=== PATIENT | female | born 1945 | race Caucasian/White ===

== ENCOUNTER → 2024-07-07 | Outpatient (CLI) | payer MEDICARE, SELFPAY ==
[2024-07-07 08:26] LABS: Basophils # (Auto) 0.1 Thou/mm3 (0.0-0.2); Basophils % (Auto) 1 % (0-2.5); Eosinophils # (Auto) 0.2 Thou/mm3 (0.0-0.5); Eosinophils % (Auto) 2 % (0-10); Hematocrit 38.3 % (36.0-46.0); Immature Granulocytes % (Auto) 0 % (0-0); Immature Granulocytes Auto 0.01 Thou/mm3 (0.00-0.00); Lymphocytes # (Auto) 2.3 Thou/mm3 (1.0-4.8); Lymphocytes % (Auto) 29 % (10-50); Mean Corpuscular HGB Conc 33.9 g/dl (31.0-37.0); Mean Corpuscular Hemoglobin 32.2 pg (25.0-35.0); Mean Corpuscular Volume 95 fL (80-100); Monocytes # (Auto) 0.7 Thou/mm3 (0.0-0.8); Monocytes % (Auto) 9 % (0-12); Neutrophils # (Auto) 4.8 Thou/mm3 (1.8-7.7); Neutrophils % (Auto) 59 % (37-80); Nucleated Red Blood Cell % 0 /100 WBC (0); Platelet Count 304 Thou/mm3 (140-440); RDW Standard Deviation 45.2 fL (36.4-46.3); Red Blood Count 4.04 Miln/mm3 (4.00-5.20); White Blood Count 8.1 Thou/mm3 (3.6-11.0)
[2024-07-07 08:48] LABS: Albumin, Serum 4.8 gm/dL (3.4-4.8); Anion Gap 7 (7-16); BUN/Creatinine Ratio 27 Ratio (12-20); Blood Urea Nitrogen 27 mg/dL (9-23); Calcium 10.1 mg/dL (8.3-10.6); Calcium (Corrected) 10.1 mg/dL (8.5-10.1); Carbon Dioxide 28.1 mMol/L (20.0-31.0); Chloride 105 mMol/L (98-107); Glucose 91 mg/dL (74-106); Osmolality,Calculated 284 (275-295); Phosphorous 3.7 mg/dL (2.4-5.1); Potassium 4.2 mMol/L (3.4-5.1); Sodium 140 mMol/L (136-145); eGFR 58 See Note
[2024-07-07 09:00] LABS: Total Iron Binding Capacity 291 mcg/dL (250-425)
[2024-07-07 22:13] LABS: Iron 130 mcg/dL (50-170); Percent Iron Saturation 44 % (20-55); Unsaturated Iron Binding 161 (225-295)
== END | disposition home or self-care (01) ==
LOC: COPL 07:01
PROVIDERS: PCP Family Medicine; Referring Provider Internal Medicine; Visit Provider Internal Medicine
DX: E55.9 Vitamin D deficiency, unspecified (principal); I10 Essential (primary) hypertension; D64.9 Anemia, unspecified
CPT/HCPCS: 36415; 80069; 83540; 83550; 85025

== ENCOUNTER → 2024-09-11 | Outpatient (CLI) | payer MEDICARE, SELFPAY ==
[2024-09-11 17:59] LABS: Amphetamine/Methamp Scrn,U Negative (Negative); Barbiturate Screen,Urine Negative (Negative); Benzodiazepines Screen,Urine Negative (Negative); Benzoylecgonine Screen, Ur Negative (Negative); Fentanyl Screen,Urine Negative (Negative); Opiate Screen,Urine Positive (Negative); THC Screen,Urine Negative (Negative)
== END | disposition home or self-care (01) ==
LOC: SLDO 15:45
PROVIDERS: PCP Registered Nurse; Referring Provider Registered Nurse; Visit Provider Registered Nurse
DX: Z79.891 Long term (current) use of opiate analgesic (principal)
CPT/HCPCS: 80307

== ENCOUNTER → 2024-10-05 | Outpatient (CLI) | payer MEDICARE, SELFPAY ==
[2024-10-05 08:46] LABS: Albumin, Serum 4.4 gm/dL (3.4-4.8); Anion Gap 5 (7-16); BUN/Creatinine Ratio 21 Ratio (12-20); Blood Urea Nitrogen 21 mg/dL (9-23); Calcium 9.8 mg/dL (8.3-10.6); Calcium (Corrected) 9.8 mg/dL (8.5-10.1); Carbon Dioxide 29.5 mMol/L (20.0-31.0); Chloride 108 mMol/L (98-107); Glucose 97 mg/dL (74-106); Osmolality,Calculated 286 (275-295); Phosphorous 3.3 mg/dL (2.4-5.1); Potassium 4.1 mMol/L (3.4-5.1); Sodium 142 mMol/L (136-145); eGFR 58 See Note
== END | disposition home or self-care (01) ==
LOC: COPL 06:49
PROVIDERS: PCP Family Medicine; Referring Provider Internal Medicine; Visit Provider Internal Medicine
DX: D64.9 Anemia, unspecified (principal); I10 Essential (primary) hypertension; E55.9 Vitamin D deficiency, unspecified
CPT/HCPCS: 36415; 80069

== ENCOUNTER → 2024-10-27 | Outpatient (CLI) | payer MEDICARE, SELFPAY ==
--- NOTE | 2024-10-27 11:00 | XR_ITS ---
Examination: Screening digital mammography, bilateral Computer aided detection 3-D breast Tomosynthesis, bilateral Date and time of exam: October 27, 2024 1045 hours Compared to mammograms dating to 03/27/2015 Indication: Screening Technique: Nonmagnified MLO, CC views of the breasts to been obtained, reconstructed from 3-D Tomosynthesis images. R2 computer aided detection program utilized for evaluation of suspicious masses and/or abnormal calcifications. 3-D Tomosynthesis images obtained. Findings: Scattered areas of fibroglandular density. Benign calcifications. No interval suspicious masses Impression: BI-RADS category II: Benign Findings. Recommend 1 year follow-up mammogram.
== END | disposition home or self-care (01) ==
PROVIDERS: Referring Provider Family Medicine; Visit Provider Family Medicine
DX: Z12.31 Encounter for screening mammogram for malignant neoplasm of breast (principal); R92.323 Mammographic fibroglandular density, bilateral breasts; R92.1 Mammographic calcification found on diagnostic imaging of breast
CPT/HCPCS: 77063; 77067

== ENCOUNTER → 2024-11-15 | Outpatient (CLI) | payer MEDICARE, SELFPAY ==
[2024-11-15 14:59] LABS: Collection Type, Urine Clean Catch
[2024-11-15 16:54] LABS: Bilirubin,Urine Negative (Negative); Blood,Urine Trace (Negative); Clarity,Urine Clear (Clear/Hazy); Color,Urine Lt-Yellow (Lt Yel-Yel); Glucose, Urine Negative (Negative); Ketones,Urine Negative (Negative); Leukocyte Esterase,Urine Negative (Negative); Nitrite,Urine Negative (Negative); PH,Urine 6.5 (5.0-7.0); Protein,Urine Negative (Neg - Trace); RBC,Urine < 1 /hpf (0-3); Specific Gravity,Urine 1.016 (1.001-1.035); Squamous Epithelial Cell,Urine 1 /hpf (0-5); Urobilinogen,Urine Negative mg/dL (0.0-1.0); WBC,Urine 2 /hpf (0-5)
== END | disposition home or self-care (01) ==
LOC: SLDO 14:27
PROVIDERS: PCP Family Medicine; Referring Provider Family Medicine; Visit Provider Family Medicine
DX: N39.0 Urinary tract infection, site not specified (principal)
CPT/HCPCS: 81001; 87086

== ENCOUNTER → 2024-12-14 | Outpatient (CLI) | payer MEDICARE, SELFPAY ==
[2024-12-14 15:06] LABS: Collection Type, Urine Clean Catch
[2024-12-14 15:47] LABS: Bilirubin,Urine Negative (Negative); Blood,Urine Negative (Negative); Clarity,Urine Clear (Clear/Hazy); Color,Urine Lt-Yellow (Lt Yel-Yel); Glucose, Urine Negative (Negative); Ketones,Urine Negative (Negative); Leukocyte Esterase,Urine Negative (Negative); Nitrite,Urine Negative (Negative); Protein,Urine Negative (Neg - Trace); RBC,Urine 2 /hpf (0-3); Specific Gravity,Urine 1.012 (1.001-1.035); Squamous Epithelial Cell,Urine 1 /hpf (0-5); Urobilinogen,Urine Negative mg/dL (0.0-1.0); WBC,Urine 4 /hpf (0-5)
== END | disposition home or self-care (01) ==
LOC: SLDO 15:01
PROVIDERS: PCP Registered Nurse; Referring Provider Registered Nurse; Visit Provider Registered Nurse
DX: Z79.891 Long term (current) use of opiate analgesic (principal)
CPT/HCPCS: 81001; 87077; 87086; 87186

== ENCOUNTER 2024-12-23 10:09 | Emergency (ER) | payer MEDICARE, SELFPAY ==
[2024-12-23 10:10] VITALS: BMI 17.4
--- NOTE | 2024-12-23 10:14 | EKG_ITS ---
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
[2024-12-23 10:42] VITALS: BP 113/65; PULSE 70; RESP 20; TEMP 36.6; O2SAT 97; BMI 17.3
--- NOTE | 2024-12-23 10:52 | XR_ITS ---
Examination: PA lateral chest 2 views Technique: Upright PA lateral chest 2 views Date and time: December 23, 2024, 1102 hrs. Comparison June 16, 2021 Indications: Chest pain weakness beginning 4 days ago. Findings: Significant hyperexpansion Mild pneumonia in the lingular segment No pulmonary edema Prominent osteopenia Impression: COPD. Pneumonia lingular segment left upper lobe
--- NOTE | 2024-12-23 10:53 | PD.EDRME ---
Rapid Medical Screening Exam E Arrival date/time: 12/23/24 10:09 This is a 79-year-old female who comes into the emergency room with complaints of nausea and weakness for the past couple weeks. Patient also states she has shortness of breath. Patient denies chest pain. Patient reports that she was recently treated for UTI. Patient was initially put on Augmentin approximately 2 weeks ago. Patient antibiotic was changed but does not remember the name of it. And last week was put on Bactrim for her urinary tract infection. Patient states she has not been able to take her antibiotic in the last 2 days. Patient reports feeling very weak and short of breath. Patient reports history of what appears to be skin cancer. Patient states she has a lesion on her nose and the back of her head and on her leg. Patient states she recently had radiation to her right leg. I have greeted and performed a focused initial assessment of this patient. Initial appropriate labs ordered at this time. A comprehensive ED assessment and evaluation of the patient and analysis of all test and completion of medical decision making process will be conducted by additional ED provider. Chief Complaint: Nausea/Vomiting/Diarrhea Time Seen by Provider: 12/23/24 10:12 Vital signs: Vital Signs Temperature 97.8 F 12/23/24 10:42 Pulse Rate 70 12/23/24 10:42 Respiratory Rate 20 12/23/24 10:42 Blood Pressure 113/65 12/23/24 10:42 Pulse Oximetry (%) 97 12/23/24 10:42 Oxygen Delivery Method Room Air 12/23/24 10:42
[2024-12-23 11:16] LABS: Basophils # (Auto) 0.1 Thou/mm3 (0.0-0.2); Basophils % (Auto) 1 % (0-2.5); Eosinophils # (Auto) 0.2 Thou/mm3 (0.0-0.5); Eosinophils % (Auto) 3 % (0-10); Hemoglobin 12.4 g/dL (12.0-16.0); Immature Granulocytes % (Auto) 0 % (0-0); Immature Granulocytes Auto 0.02 Thou/mm3 (0.00-0.00); Lymphocytes # (Auto) 0.8 Thou/mm3 (1.0-4.8); Lymphocytes % (Auto) 11 % (10-50); Mean Corpuscular HGB Conc 35.4 g/dl (31.0-37.0); Mean Corpuscular Hemoglobin 32.5 pg (25.0-35.0); Mean Corpuscular Volume 92 fL (80-100); Monocytes # (Auto) 0.9 Thou/mm3 (0.0-0.8); Monocytes % (Auto) 12 % (0-12); Neutrophils # (Auto) 5.2 Thou/mm3 (1.8-7.7); Neutrophils % (Auto) 73 % (37-80); Nucleated Red Blood Cell % 0 /100 WBC (0); Platelet Count 230 Thou/mm3 (140-440); RDW Standard Deviation 44.5 fL (36.4-46.3); Red Blood Count 3.81 Miln/mm3 (4.00-5.20); White Blood Count 7.1 Thou/mm3 (3.6-11.0)
[2024-12-23 11:28] LABS: B-Type Natriuretic Peptide 27 pg/mL (0-100)
[2024-12-23 11:34] LABS: Alanine Aminotransferase 648 U/L (10-49); Albumin, Serum 4.5 gm/dL (3.4-4.8); Albumin/Globulin Ratio 1.7 (1.2-2.2); Alkaline Phosphatase 374 U/L (46-116); Anion Gap 6 (7-16); Aspartate Amino Transferase 604 U/L (0-34); BUN/Creatinine Ratio 11 Ratio (12-20); Bilirubin,Total 1.4 mg/dL (0.3-1.2); Blood Urea Nitrogen 16 mg/dL (9-23); Calcium 9.6 mg/dL (8.3-10.6); Calcium (Corrected) 9.6 mg/dL (8.5-10.1); Carbon Dioxide 26.1 mMol/L (20.0-31.0); Chloride 103 mMol/L (98-107); Creatinine (Component) 1.4 mg/dL (0.6-1.3); Estimated Creatinine Clearance 26.6 mL/min (>60); Globulin 2.7 gm/dL (2.3-3.5); Glucose 112 mg/dL (74-106); Osmolality,Calculated 272 (275-295); Potassium 3.9 mMol/L (3.4-5.1); Sodium 135 mMol/L (136-145); Total Protein 7.2 gm/dL (5.7-8.2); Troponin I < 0.020 ng/mL (0.0-0.045); eGFR 39 See Note
[2024-12-23 13:02] LABS: Collection Type, Urine Voided
[2024-12-23 13:17] LABS: Bacteria,Urine Rare; Bilirubin,Urine Negative (Negative); Blood,Urine Negative (Negative); Clarity,Urine Turbid (Clear/Hazy); Color,Urine Yellow (Lt Yel-Yel); Culture Indicated,Urine Not Indicated; Glucose, Urine Negative (Negative); Ketones,Urine Negative (Negative); Leukocyte Esterase,Urine Negative (Negative); Nitrite,Urine Negative (Negative); PH,Urine 6.5 (5.0-7.0); Protein,Urine Trace (Neg - Trace); RBC,Urine 5 /hpf (0-3); Specific Gravity,Urine 1.012 (1.001-1.035); Squamous Epithelial Cell,Urine 10 /hpf (0-5); Transitional Epi Cells,Urine 1 /hpf (0-5); Urobilinogen,Urine Negative mg/dL (0.0-1.0); WBC,Urine 3 /hpf (0-5)
--- NOTE | 2024-12-23 16:27 | XR_ITS ---
Examination: Abdomen sonogram, Limited Date and time of exam: December 23, 2024, 1652 hours INDICATIONS: Elevated liver enzymes on laboratory examination today Technique: Real-time garzon scale transabdominal sonographic images of the upper abdomen obtained. Findings: Multiple gallstones. Normal gallbladder wall. Common bile duct 0.7 cm no definite stones. Pancreatic head 1.6 cm. Liver 15.6 cm smooth contour Normal hepatopedal portal venous and Patent IVC IMPRESSION: Cholelithiasis, negative for cholecystitis Common bile duct 0.7 cm no definite stones
--- NOTE | 2024-12-23 17:12 | PD.EDWEAK ---
ED Weakness RME/HPI General Chief complaint: Nausea/Vomiting/Diarrhea Stated complaint: BODY ACHES/NAUSEA/DRY HEAVES x 5 DAYS Time Seen by Provider: 12/23/24 10:12 Arrival date/time: 12/23/24 10:09 Limitations: no limitations RME / HPI RME / HPI Narrative: 12/23/24 10:09 This is a 79-year-old female who comes into the emergency room with complaints of nausea and weakness for the past couple weeks. Patient also states she has shortness of breath. Patient denies chest pain. Patient reports that she was recently treated for UTI. Patient was initially put on Augmentin approximately 2 weeks ago. Patient antibiotic was changed but does not remember the name of it. And last week was put on Bactrim for her urinary tract infection. Patient states she has not been able to take her antibiotic in the last 2 days. Patient reports feeling very weak and short of breath. Patient reports history of what appears to be skin cancer. Patient states she has a lesion on her nose and the back of her head and on her leg. Patient states she recently had radiation to her right leg. I have greeted and performed a focused initial assessment of this patient. Initial appropriate labs ordered at this time. A comprehensive ED assessment and evaluation of the patient and analysis of all test and completion of medical decision making process will be conducted by additional ED provider. DR. HARRISON MAIN ED EVALUATION: 79 year old female with history of COPD, hypertension, hyperlipidemia, rectal prolapse status post sigmoidectomy with colorectal anastomosis and rectopexy with mesh in 2018, esophageal stricture, and fibromyalgia presents to the ED for evaluation of global weakness and feeling fatigued beginning 2 days ago. Accompanied by decreased appetite, nausea, and dry heaving. Patient mentioned she was diagnosed with a UTI ~ 1 month ago and treated with three different antibiotics and unsure if that is contributing to her symptoms today. Patient additionally reports chronic pain in her back. However, beginning 3 days ago has had a new and different pain to her back. Denies fevers, chills, chest pain, cough, vomiting, diarrhea, constipation, or dysuria. Related Data Home Medications ?Medication ?Instructions ?Recorded ?Confirmed simvastatin 40 mg tablet (Zocor) 40 mg PO HS #0 tabs 10/02/13 11/10/22 ergocalciferol (vitamin D2) 1,250 50,000 unit PO QWEEK 06/10/20 11/10/22 mcg (50,000 unit) capsule (Vitamin D2) hydrocodone 7.5 mg-acetaminophen 4 tab PO QID PRN Pain 03/27/21 11/10/22 325 mg tablet Held on 11/10/22. Instructions: Resume on 11/11/22. promethazine 6.25 mg-codeine 10 10 ml PO QID PRN Cough 03/27/21 06/16/21 mg/5 mL syrup Held on 11/10/22. Instructions: Resume on 11/11/22. azithromycin 250 mg tablet 250 mg PO QDAY 06/16/21 11/10/22 lisinopril 30 mg tablet 30 mg PO QDAY 09/29/22 11/10/22 loratadine 10 mg capsule 10 mg PO QDAY 09/29/22 11/10/22 meloxicam 7.5 mg tablet 7.5 mg PO QDAY 09/29/22 11/10/22 ondansetron 8 mg disintegrating 8 mg PO Q8H 09/29/22 11/10/22 tablet trazodone 50 mg tablet 50 mg PO QDAY 09/29/22 11/10/22 Held on 11/10/22. Instructions: Resume on 11/11/22. vitamin B comp no.3-folic acid 1 1 tab PO QDAY 09/29/22 11/10/22 mg-vit C 60 mg-biotin 300 mcg tablet (Kindra-Jose Rx) Allergies Allergy/AdvReac Type Severity Reaction Status Date / Time No Known Allergies Allergy Verified 12/23/24 10:13 Review of Systems Review of Systems Systems Reviewed: All systems reviewed, normal except as documented Past Medical History Past Medical History CARDIAC: Positive Cardiac Disorders, Hypercholesterolemia and Hypertension RESPIRATORY: Positive Chronic Obstructive Pulmonary Disease (COPD) GASTROINTESTINAL: Positive Gastrointestinal Disorders, Obstructive Bowel and Gastroesophageal Reflux Disease GENITOURINARY: Positive Genitourinary Disorders REPRODUCTIVE: Positive Previous Pregnancies MUSCULOSKELETAL: Positive Musculoskeletal Disorders, Arthritis and Fibromyalgia ENT: Positive Cataracts ENDOCRINE: Positive Hypoglycemia PSYCHO/SOCIAL: Positive Depression and Anxiety OTHER HISTORY: Positive Hospitalization, Chicken Pox, Measles and Mumps Family History FAMILY HISTORY: Positive Family Cancer (father and mother bone cancer) Surgical History SURGICAL: Positive Tonsillectomy, Abdominal Surgery and Bowel Surgery (BOWEL RESECTION) Social History SMOKING STATUS: Current some day smoker SECOND HAND EXPOSURE: No SUBSTANCE USE: does not use ED Exam General Limitations: Present no limitations General appearance: Present alert and other (thin appearing, emaciated ) Head Head exam: Present atraumatic Eye Eye exam: Present normal appearance, PERRL and EOMI ENT ENT exam: Present normal exam, normal oropharynx and mucous membranes moist Neck Neck exam: Present normal inspection, full ROM and trachea midline Chest Chest inspection: Present normal inspection and symmetric chest wall rise Respiratory Respiratory exam: Present normal lung sounds bilaterally Cardiovascular Cardiovascular exam: Present regular rate, normal rhythm and normal heart sounds Abdominal Exam Abdominal exam: Present soft and normal bowel sounds; Absent guarding, rebound or rigidity Extremities Exam Extremities exam: Present normal inspection and full ROM Back Exam Back exam: Present normal inspection and full ROM Neurological Exam Neurological exam: Present alert, oriented X3 and CN II-XII intact Psychiatric Psychiatric exam: Present normal affect and normal mood Skin Skin exam: Present warm, dry, intact and normal color Course Quality Measures none Orders Category Date Time Status CT Screening NOW Care 12/23/24 16:27 Completed EKG (ED ONLY) *Do not use* NOW Care 12/23/24 10:14 Completed MRI Screening NOW Care 12/23/24 19:[address] abdomen pelvis wo con Stat Exams 12/23/24 17:28 Completed EKG (ED Only) Stat Exams 12/23/24 10:14 Draft MR MRCP Stat Exams 12/23/24 Ordered US abdomen limited Stat Exams 12/23/24 16:27 Completed XR chest 2V Stat Exams 12/23/24 10:52 Completed Acetaminophen Stat Lab 12/23/24 20:01 Completed BNP [B-Type Natriuretic Peptide] Stat Lab 12/23/24 11:02 Completed CBC Stat Lab 12/23/24 11:02 Completed Comprehensive Metabolic Panel Stat Lab 12/23/24 11:02 Completed Hepatitis Acute Panel Stat Lab 12/23/24 20:01 Received Troponin I Stat Lab 12/23/24 11:02 Completed Urinalysis, C/S if Indicated Stat Lab 12/23/24 12:54 Completed Urine Culture Stat Lab 12/23/24 12:54 Received HYDROcodone/APAP 10/325 [Irwin 10/325] Med 12/23/24 19:24 Discontinued 1 tab PO X1 ONE HYDROcodone/APAP 10/325 [Irwin 10/325] Med 12/24/24 04:08 Discontinued 1 tab PO X1 ONE Ondansetron Inj [Zofran Inj] Med 12/24/24 00:13 Discontinued 4 mg IVP X1 ONE Piper/Tazo 3.375 gm Premix [Zosyn] Med 12/23/24 22:23 Discontinued 3.375 gm in 50 ml IV X1 Ringers Lactated 1000 ml [Lactated Ringers] 1,000 ml Med 12/23/24 17:29 Discontinued IV 125 mls/hr Ringers Lactated 500 ml [Lactated Ringers] 500 ml Med 12/23/24 17:29 Discontinued IV 500 mls/hr Vital Signs Vital signs: Vital Signs Temperature 97.8 F 12/23/24 10:42 Pulse Rate 70 12/23/24 10:42 Respiratory Rate 20 12/23/24 10:42 Blood Pressure 113/65 12/23/24 10:42 Pulse Oximetry (%) 97 12/23/24 10:42 Oxygen Delivery Method Room Air 12/23/24 10:42 Pulse ox is 97% on room air which is adequate. Weakness MDM Narrative MDM Narrative:: Janay Martins am scribing for and in the presence of Dr. Harrison. Assessment: Possible pneumonia, has a history of COPD, now with the addition of abdominal discomfort. Given the new symptoms, the differential includes CBD stone versus a tumor. Plan: CT abdomen, ultrasound of the abdomen, antibiotics, and supportive care for COPD exacerbation and pneumonia. 1800; Patient signed out to Dr. Rascon pending CT report and final disposition. Patient data External records reviewed:: [facility] previous records (I reviewed H&P on 11/10/2022 ) Clinical information provided by:: patient Social determinants that could affect healthcare access:: none Patient has the following chronic illnesses:: COPD, hypertension, hyperlipidemia, rectal prolapse status post sigmoidectomy with colorectal anastomosis and rectopexy with mesh in 2018, esophageal stricture, and fibromyalgia How is presenting disease/condition affected by chronic disease/condition?: exacerbated by Evaluation data The following diagnostics were reviewed and interpreted by me:: lab results, radiology exam(s) and EKG tracing(s) Lab and/or radiology exams considered but not ordered:: None Interpretation Summary: Ordering Physician: Zabrina Aguilar NP Date of Service: 12/23/24 Procedure(s): XR chest 2V Accession Number(s): [id number] cc: Samm Grant MD; Zabrina Aguilar RN OUTPATIENT SURGERY; Ralf Dolan MD~ Examination: PA lateral chest 2 views Technique: Upright PA lateral chest 2 views Date and time: December 23, 2024, 1102 hrs. Comparison June 16, 2021 Indications: Chest pain weakness beginning 4 days ago. Findings: Significant hyperexpansion Mild pneumonia in the lingular segment No pulmonary edema Prominent osteopenia Impression: COPD. Pneumonia lingular segment left upper lobe Dictated By: Samm Grant MD Signed By: <Electronically signed by Samm Grant MD in OV> 12/23/24 1138 Medications / Prescriptions Medications or Prescriptions considered but not ordered:: None Medication administrations:: Medication Administration History Discontinued Medications Hydrocodone Bitart/Acetaminophen (Hydrocodone/Apap 10/325 Tab) 1 tab PO X1 ONE Stop: 12/23/24 19:25 Last Admin: 12/23/24 19:43 Dose: 1 tab Documented By: CHARISSE Hydrocodone Bitart/Acetaminophen (Hydrocodone/Apap 10/325 Tab) 1 tab PO X1 ONE Stop: 12/24/24 04:09 Last Admin: 12/24/24 04:15 Dose: 1 tab Documented By: CHARISSE Lactated Ringer's (Lactated Ringers) 1,000 mls @ 125 mls/hr IV .Q8H ONE Stop: 12/24/24 01:28 Last Infusion: 12/24/24 03:09 Dose: Infused Documented By: Admin: 12/23/24 17:39 Dose: 125 mls/hr Documented By: Lactated Ringer's (Lactated Ringers) 500 mls @ 500 mls/hr IV .Q1H ONE Stop: 12/23/24 18:28 Last Infusion: 12/23/24 18:50 Dose: Infused Documented By: Admin: 12/23/24 17:40 Dose: 500 mls/hr Documented By: Piperacillin/Tazobactam/Dextrose (Zosyn) 3.375 gm in 50 mls @ 100 mls/hr IV X1 ONE Stop: 12/23/24 22:52 Last Infusion: 12/23/24 23:38 Dose: Infused Documented By: Admin: 12/23/24 22:29 Dose: 100 mls/hr Documented By: CHARISSE Ondansetron HCl (Ondansetron Inj 2 Mg/Ml Inj 2 Ml) 4 mg IVP X1 ONE Stop: 12/24/24 00:14 Last Admin: 12/24/24 00:24 Dose: 4 mg Documented By: CHARISSE See above Consultations Consultation(s) initiated? (list below): No Diagnosis Weakness Differential Diagnosis: hypothyroidism, sepsis and dehydration Most likely diagnosis given after review of the tests above:: Abdominal pain Admission Indicated Admission indicated?: not indicated Explain why admission is indicated or not indicated:: Signed out to Dr. Rascon Admission Request Was there a request for admission?: No Disposition Plan Disposition Plan: other (specify) (Signed out pending final disposition ) Critical Care Time Critical Care Time Critical Care Time: Yes Total Critical Care Time (min.): 40 Attestation: common bile ducu stone Discharge Plan Plan Patient Disposition: [facility] Facility Pt Being Transferred to: [facility] Service Needed for Transfer: Gastroenterology Patient condition on transfer: Stable Prescriptions/Referrals Prescriptions/Med Rec: No Action meloxicam 7.5 mg tablet 7.5 mg PO QDAY Kindra-Jose Rx 1-60-300 mg-mg-mcg tablet 1 tab PO QDAY loratadine 10 mg capsule 10 mg PO QDAY trazodone 50 mg tablet 50 mg PO QDAY lisinopril 30 mg tablet 30 mg PO QDAY ondansetron 8 mg tablet,disintegrating 8 mg PO Q8H simvastatin [Zocor] 40 MG tablet 40 mg PO HS Qty: 0 ergocalciferol (vitamin D2) [Vitamin D2] 1,250 mcg (50,000 unit) capsule 50,000 unit PO QWEEK Patient Comments: TAKE ONE CAPSULE BY MOUTH EVERY WEEK VITAMIN promethazine-codeine 6.25-10 mg/5 mL syrup 10 ml PO QID PRN (Reason: Cough) Patient Comments: TAKE 10ML BY MOUTH EVERY 4 HOURS NEEDED FOR COUGH hydrocodone-acetaminophen 7.5-325 mg tablet 4 tab PO QID PRN (Reason: Pain) Patient Comments: TAKE ONE TABLET BY MOUTH FOUR TIMES DAILY NEEDED FOR PAIN azithromycin 250 mg tablet 250 mg PO QDAY Referrals: Ralf Dolan MD [Primary Care Provider] - In 1 week Problem List Clinical Impression: Biliary calculi, common bile duct Patient/Caregiver Discharge Instructions Print Language: Zimbabwean Stand Alone Forms: Disha Award Info., Patient Portal Info Letter
[2024-12-23 17:22] VITALS: BP 138/61; PULSE 60; RESP 19; TEMP 36.6; O2SAT 94; BMI 17.2
--- NOTE | 2024-12-23 17:28 | XR_ITS ---
Examination: CT abdomen and pelvis without contrast. Coronal 3-D reconstructions. Sagittal 2-D reconstructions. Date and time of exam:December 23, 2024, 1749 hours Comparison July 16, 2023 INDICATIONS: Abdominal pain and elevated liver enzymes on laboratory examination today CTDI: vol (mGy): 5.09 DLP: (mGycm): 222 Technique: Axial images of the abdomen have been obtained, 3 mm slice thickness Intravenous contrast material has not been administered. Low dose protocols were performed. One or more of the following dose reduction techniques were used; automated exposure control, adjustment of the mA and/or KV according to patient size, use of iterative reconstruction technique. Findings: Left lobe 4 cm liver cyst Hepatomegaly 17 cm No intrahepatic biliary tract dilatation Gallstones Gallbladder wall does not appear thickened Common bile duct 7 mm no definite stones No pancreatic mass No renal or ureteral calculi, no hydronephrosis Normal appendix No bowel obstruction No diverticulitis Urinary bladder intact IMPRESSION: Hepatomegaly, 17 cm Cholelithiasis, negative for cholecystitis Common bile duct 7 mm, no definite stones, if biliary colic is a clinical consideration, suggest MRCP follow-up
[2024-12-23] MEDS: RINGERS LACTATED 1000 ML 1,000 ML 125 ML IV (17:39)
[2024-12-23] MEDS: RINGERS LACTATED 500 ML 500 ML IV (17:40)
[2024-12-23 18:01] VITALS: BP 141/73; PULSE 63; RESP 12; TEMP 36.6; O2SAT 96
--- NOTE | 2024-12-23 18:19 | PD.EDADDENDU ---
Emergency Room Addendum Addendum Narrative: 1800: Care assumed from Dr. Michele (emergency physician). Past medical, surgical, social and family history reviewed. Vitals and home medications reviewed. Results and treatment plan discussed. They will assume the care of the patient at this time and will follow the patient, pending US and CT. The following addendum documentation note is intended to reflect any pending information, findings, or radiology results not included in the patient?s initial chart by the previous shift scribe. RADIOLOGY Abdomen/Pelvis CT: Patient: OLIVIA GREENBERG. Record#: [id number] Birthdate: 1945 Age/Sex: 79 / F Location: [facility], [place] Attending Dr: Ordering Physician: Maria Antonia Kendall MD Date of Service: 12/23/24 Procedure(s): CT abdomen pelvis wo con Accession Number(s): [id number] cc: Maria Antonia Kendall MD; Samm Grant MD; Ralf Dolan MD~ Examination: CT abdomen and pelvis without contrast. Coronal 3-D reconstructions. Sagittal 2-D reconstructions. Date and time of exam:December 23, 2024, 1749 hours Comparison July 16, 2023 INDICATIONS: Abdominal pain and elevated liver enzymes on laboratory examination today CTDI: vol (mGy): 5.09 DLP: (mGycm): 222 Technique: Axial images of the abdomen have been obtained, 3 mm slice thickness Intravenous contrast material has not been administered. Low dose protocols were performed. One or more of the following dose reduction techniques were used; automated exposure control, adjustment of the mA and/or KV according to patient size, use of iterative reconstruction technique. Findings: Left lobe 4 cm liver cyst Hepatomegaly 17 cm No intrahepatic biliary tract dilatation Gallstones Gallbladder wall does not appear thickened Common bile duct 7 mm no definite stones No pancreatic mass No renal or ureteral calculi, no hydronephrosis Normal appendix No bowel obstruction No diverticulitis Urinary bladder intact IMPRESSION: Hepatomegaly, 17 cm Cholelithiasis, negative for cholecystitis Common bile duct 7 mm, no definite stones, if biliary colic is a clinical consideration, suggest MRCP follow-up Dictated By: Samm Grant MD Signed By: <Electronically signed by Samm Grant MD in OV> 12/23/241809 Abdomen US: Patient: OLIVIA GREENBERG. Record#: [id number] Birthdate: 1945 Age/Sex: 79 / F Location: [facility], [place] Attending Dr: Ordering Physician: Maria Antonia Kendall MD Date of Service: 12/23/24 Procedure(s): US abdomen limited Accession Number(s): [id number] cc: Maria Antonia Kendall MD; Samm Grant MD; Ralf Dolan MD~ Examination: Abdomen sonogram, Limited Date and time of exam: December 23, 2024, 1652 hours INDICATIONS: Elevated liver enzymes on laboratory examination today Technique: Real-time garzon scale transabdominal sonographic images of the upper abdomen obtained. Findings: Multiple gallstones. Normal gallbladder wall. Common bile duct 0.7 cm no definite stones. Pancreatic head 1.6 cm. Liver 15.6 cm smooth contour Normal hepatopedal portal venous and Patent IVC IMPRESSION: Cholelithiasis, negative for cholecystitis Common bile duct 0.7 cm no definite stones Dictated By: Samm Grant MD Signed By: <Electronically signed by Samm Grant MD in OV> 12/23/241815 2039: Discussed with Dr. Correa for consult. Reviewed the patient?s HPI, PMHx, lab and/or radiology results. Treatment plan was discussed. 2047: I agree with previous provider's physical exam. Discussed the need for MRCP and the possibility of being transferred to another facility. Worst case, patient may need to wait and have MRCP performed here on Wednesday as we do not have the capability to do so on Sundays. Patient is still experiencing intermittent nausea and now back pain due to being on the gurney for a long period of time. She reports normally being very active and not being in bed for long periods of time. Will attempt transfer. 2307: Discussed with [facility] for transfer. Reviewed the patient?s HPI, PMHx, lab and/or radiology results. Discussed treatment plan and need for MRCP. Will consult transfer. 2320: Patient accepted to [facility] for transfer and MRCP. 0440: Patient transported by EMS to [facility] for MRCP.
--- NOTE | 2024-12-23 19:25 | PC.NURSE ---
NOTIFIED OF PATIENT'S REQUEST FOR HOME DOSE OF NORCO 10/325MG TAB FOR C/O 8/10 PAIN TO BACK, RECEIVED VERBAL ORDER FOR NORCO 10/325MG TBA ONE TAB NOW.
[2024-12-23] MEDS: HYDROcodone/APAP 10/325 TAB PO (19:43)
[2024-12-23 20:46] VITALS: BP 125/59; PULSE 70; RESP 17; O2SAT 97
[2024-12-23 20:53] LABS: Acetaminophen < 2.0 mcg/mL (10.0-20.0)
[2024-12-23] MEDS: PIPER/TAZO 3.375 GM PREMIX 3.375 GM/50 ML BAG IV (22:29)
--- NOTE | 2024-12-23 22:30 | PC.NURSE ---
[facility] contacted for GI transfer. Pt is needing an MRCP, we currently don't have MRI available until Wednesday. Ada at transfer center was notified packet was sent. they are to reach back after consulting with GI
--- NOTE | 2024-12-23 23:22 | PC.NURSE ---
2318, accepted to [facility], ed to ed, , report #[id number], spoke to hilary
[2024-12-24 00:10] VITALS: BP 128/60; PULSE 60; PULSE 62; RESP 18; TEMP 36.5
[2024-12-24] MEDS: ONDANSETRON INJ 2 MG/ML INJ 2 ML 4 MG IVP (00:24)
--- NOTE | 2024-12-24 02:08 | PC.NURSE ---
2318, accepted to [facility], ed to ed, , report #[id number], spoke to hilary
[2024-12-24 02:15] VITALS: BP 121/66; PULSE 61; RESP 17; TEMP 36.6; O2SAT 96
--- NOTE | 2024-12-24 02:36 | PC.NURSE ---
REPORT GIVEN TO TRIAGE NURSE HAYES RODRIGUEZ AT [facility].
[2024-12-24 04:08] VITALS: BP 145/68; PULSE 66; RESP 19; TEMP 36.8; O2SAT 97
[2024-12-24] MEDS: HYDROcodone/APAP 10/325 TAB PO (04:15)
--- NOTE | 2024-12-24 04:43 | PC.NURSE ---
BEDSIDE REPORT GIVEN TO EMS. PATIENT TRANSFERRED TO [facility] AT THIS TIME.
[2024-12-24 20:15] LABS: Hepatitis A Antibody IgM Non Reactive (Non React); Hepatitis B Core Antibody IgM Non Reactive (Non React); Hepatitis B Surface Antigen Non Reactive (Non React); Hepatitis C Antibody Non Reactive (Non React)
== END 2024-12-24 04:40 | disposition short-term general hospital (02) ==
LOC: SERX 11:01
PROVIDERS: Emergency Medicine; Nurse Practitioner Family; Emergency Provider Emergency Medicine; PCP Family Medicine
DX: K80.20 Calculus of gallbladder without cholecystitis without obstruction (principal); J44.9 Chronic obstructive pulmonary disease, unspecified; J18.9 Pneumonia, unspecified organism; R16.0 Hepatomegaly, not elsewhere classified
CPT/HCPCS: 36415; 71046; 74176; 76705; 80053; 80074; 80329; 81001; 83880; 84484; 85025; 87086; 93005; 96361; 96365; 96375; 99285; J2405; J2543; J7120; A9270; G0480

== ENCOUNTER → 2025-02-01 | Outpatient (CLI) | payer MEDICARE, SELFPAY ==
[2025-02-01 08:59] LABS: Albumin, Serum 4.3 gm/dL (3.4-4.8); Anion Gap 5 (7-16); BUN/Creatinine Ratio 22 Ratio (12-20); Blood Urea Nitrogen 24 mg/dL (9-23); Calcium 9.2 mg/dL (8.3-10.6); Calcium (Corrected) 9.2 mg/dL (8.5-10.1); Carbon Dioxide 26.0 mMol/L (20.0-31.0); Chloride 109 mMol/L (98-107); Creatinine (Component) 1.1 mg/dL (0.6-1.3); Glucose 101 mg/dL (74-106); Osmolality,Calculated 283 (275-295); Phosphorous 3.1 mg/dL (2.4-5.1); Potassium 4.1 mMol/L (3.4-5.1); Sodium 140 mMol/L (136-145); eGFR 52 See Note
== END | disposition home or self-care (01) ==
LOC: COPL 06:59
PROVIDERS: PCP Family Medicine; Referring Provider Internal Medicine; Visit Provider Internal Medicine
DX: D64.9 Anemia, unspecified (principal); E55.9 Vitamin D deficiency, unspecified; I10 Essential (primary) hypertension
CPT/HCPCS: 36415; 80069

== ENCOUNTER → 2025-02-08 | Outpatient (CLI) | payer MEDICARE, SELFPAY ==
[2025-02-08 08:47] LABS: Alanine Aminotransferase 24 U/L (10-49); Albumin, Serum 4.5 gm/dL (3.4-4.8); Albumin/Globulin Ratio 1.8 (1.2-2.2); Alkaline Phosphatase 75 U/L (46-116); Anion Gap 6 (7-16); Aspartate Amino Transferase 49 U/L (0-34); BUN/Creatinine Ratio 16 Ratio (12-20); Bilirubin,Total 0.4 mg/dL (0.3-1.2); Blood Urea Nitrogen 18 mg/dL (9-23); Calcium 9.9 mg/dL (8.3-10.6); Calcium (Corrected) 9.9 mg/dL (8.5-10.1); Carbon Dioxide 27.5 mMol/L (20.0-31.0); Chloride 108 mMol/L (98-107); Creatinine (Component) 1.1 mg/dL (0.6-1.3); Globulin 2.5 gm/dL (2.3-3.5); Glucose 90 mg/dL (74-106); Osmolality,Calculated 283 (275-295); Potassium 4.1 mMol/L (3.4-5.1); Sodium 141 mMol/L (136-145); Total Protein 7.0 gm/dL (5.7-8.2); eGFR 52 See Note
== END | disposition home or self-care (01) ==
LOC: COPL 06:37
PROVIDERS: PCP Family Medicine; Referring Provider Family Medicine; Visit Provider Family Medicine
DX: R74.01 Elevation of levels of liver transaminase levels (principal)
CPT/HCPCS: 36415; 80053

== ENCOUNTER → 2025-03-14 | Outpatient (CLI) | payer MEDICARE, SELFPAY ==
[2025-03-14 15:28] LABS: Collection Type, Urine Clean Catch
[2025-03-14 16:49] LABS: Bilirubin,Urine Negative (Negative); Blood,Urine Trace (Negative); Clarity,Urine Clear (Clear/Hazy); Glucose, Urine Negative (Negative); Ketones,Urine Negative (Negative); Leukocyte Esterase,Urine Positive (Negative); Nitrite,Urine Negative (Negative); PH,Urine 5.5 (5.0-7.0); Protein,Urine Negative (Neg - Trace); RBC,Urine 3 /hpf (0-3); Specific Gravity,Urine 1.020 (1.001-1.035); Squamous Epithelial Cell,Urine 7 /hpf (0-5); Urobilinogen,Urine Negative mg/dL (0.0-1.0); WBC,Urine 4 /hpf (0-5)
[2025-03-14 17:22] LABS: Color,Urine Lt-Yellow (Lt Yel-Yel)
== END | disposition home or self-care (01) ==
LOC: SLDO 14:56
PROVIDERS: PCP Family Medicine; Referring Provider Family Medicine; Visit Provider Family Medicine
DX: N39.0 Urinary tract infection, site not specified (principal)
CPT/HCPCS: 81001; 87077; 87086; 87186

== ENCOUNTER → 2025-05-03 | Outpatient (CLI) | payer MEDICARE, SELFPAY ==
[2025-05-03 11:04] LABS: Alanine Aminotransferase 20 U/L (10-49); Albumin, Serum 4.8 gm/dL (3.4-4.8); Albumin/Globulin Ratio 1.9 (1.2-2.2); Alkaline Phosphatase 74 U/L (46-116); Anion Gap 6 (7-16); Aspartate Amino Transferase 29 U/L (0-34); BUN/Creatinine Ratio 19 Ratio (12-20); Bilirubin,Total 0.5 mg/dL (0.3-1.2); Blood Urea Nitrogen 19 mg/dL (9-23); Calcium 9.9 mg/dL (8.3-10.6); Calcium (Corrected) 9.9 mg/dL (8.5-10.1); Carbon Dioxide 28.3 mMol/L (20.0-31.0); Chloride 105 mMol/L (98-107); Creatinine (Component) 1.0 mg/dL (0.6-1.3); Globulin 2.5 gm/dL (2.3-3.5); Glucose 98 mg/dL (74-106); Osmolality,Calculated 279 (275-295); Phosphorous 3.9 mg/dL (2.4-5.1); Potassium 3.9 mMol/L (3.4-5.1); Sodium 139 mMol/L (136-145); Total Protein 7.3 gm/dL (5.7-8.2); eGFR 58 See Note
[2025-05-03 11:14] LABS: Vitamin B12 587 pg/mL (211-911); Vitamin D 25 Hydroxy Total 63.8 ng/mL (7.3-40.2)
== END | disposition home or self-care (01) ==
LOC: COPL 09:40
PROVIDERS: PCP Family Medicine; Referring Provider Internal Medicine; Visit Provider Internal Medicine
DX: G90.09 Other idiopathic peripheral autonomic neuropathy (principal); I12.9 Hypertensive chronic kidney disease with stage 1 through stage 4 chronic kidney disease, or unspecified chronic kidney disease; N18.1 Chronic kidney disease, stage 1; D63.1 Anemia in chronic kidney disease; N39.0 Urinary tract infection, site not specified; E55.9 Vitamin D deficiency, unspecified
CPT/HCPCS: 36415; 80053; 82306; 82607; 84100

== ENCOUNTER → 2025-06-25 | Outpatient (CLI) | payer MEDICARE, SELFPAY ==
[2025-06-25 08:33] LABS: Basophils # (Auto) 0.1 Thou/mm3 (0.0-0.2); Basophils % (Auto) 0 % (0-2.5); Eosinophils # (Auto) 0.1 Thou/mm3 (0.0-0.5); Eosinophils % (Auto) 0 % (0-10); Hematocrit 35.4 % (36.0-46.0); Hemoglobin 12.0 g/dL (12.0-16.0); Immature Granulocytes Auto 0.29 Thou/mm3 (0.00-0.00); Lymphocytes # (Auto) 3.2 Thou/mm3 (1.0-4.8); Lymphocytes % (Auto) 18 % (10-50); Mean Corpuscular HGB Conc 33.9 g/dl (31.0-37.0); Mean Corpuscular Hemoglobin 32.4 pg (25.0-35.0); Mean Corpuscular Volume 96 fL (80-100); Monocytes # (Auto) 1.5 Thou/mm3 (0.0-0.8); Monocytes % (Auto) 9 % (0-12); Neutrophils # (Auto) 12.2 Thou/mm3 (1.8-7.7); Neutrophils % (Auto) 71 % (37-80); Nucleated Red Blood Cell # 0.00 Thou/mm3 (0.00-0.00); Nucleated Red Blood Cell % 0 /100 WBC (0); Platelet Count 320 Thou/mm3 (140-440); RDW Standard Deviation 47.1 fL (36.4-46.3); Red Blood Count 3.70 Miln/mm3 (4.00-5.20); White Blood Count 17.4 Thou/mm3 (3.6-11.0)
[2025-06-25 09:02] LABS: Alanine Aminotransferase 23 U/L (10-49); Albumin, Serum 4.3 gm/dL (3.4-4.8); Albumin/Globulin Ratio 1.7 (1.2-2.2); Alkaline Phosphatase 77 U/L (46-116); Anion Gap 7 (7-16); Aspartate Amino Transferase 25 U/L (0-34); BUN/Creatinine Ratio 25 Ratio (12-20); Bilirubin,Total 0.3 mg/dL (0.3-1.2); Blood Urea Nitrogen 25 mg/dL (9-23); Calcium 9.0 mg/dL (8.3-10.6); Calcium (Corrected) 9.0 mg/dL (8.5-10.1); Carbon Dioxide 28.2 mMol/L (20.0-31.0); Chloride 110 mMol/L (98-107); Creatinine (Component) 1.0 mg/dL (0.6-1.3); Globulin 2.6 gm/dL (2.3-3.5); Glucose 91 mg/dL (74-106); Osmolality,Calculated 293 (275-295); Potassium 4.0 mMol/L (3.4-5.1); Sodium 145 mMol/L (136-145); Total Protein 6.9 gm/dL (5.7-8.2); eGFR 58 See Note
== END | disposition home or self-care (01) ==
LOC: COPL 07:53
PROVIDERS: PCP Family Medicine; Referring Provider Family Medicine; Visit Provider Family Medicine
DX: M54.50 Low back pain, unspecified (principal); G90.09 Other idiopathic peripheral autonomic neuropathy; N18.1 Chronic kidney disease, stage 1; R74.01 Elevation of levels of liver transaminase levels
CPT/HCPCS: 36415; 80053; 85025